=== PATIENT | female | born 1950 | race Caucasian/White ===

== ENCOUNTER 2018-02-12 01:14 | Inpatient (IN) ==
[2018-02-12] MEDS ORDERED: DILTIAZEM 50 MG/10 ML VIAL IV STA (01:33)
[2018-02-12 01:45] LABS: Basophils # 0.1 10*3/uL (0.0-0.2); Basophils % 0.4 % (0.0-0.8); Eosinophils # 0.4 10*3/uL (0.0-0.87); Eosinophils % 3.2 % (0.00-10.9); Hematocrit 38.8 VOL% (35.7-47.0); Hemoglobin 12.7 GM/DL (12.0-16.0); Immature Granulocytes % 1.2 %; Immature Granulocytes Absolute 0.16 #; Lymphocytes # 4.8 10*3/uL (1.4-4.0); Lymphocytes % 35.2 % (21.3-54.2); Mean Corpuscular HGB Conc 32.7 GM/DL (32-36); Mean Corpuscular Hemoglobin 31 PG (27-34); Mean Corpuscular Volume 93.5 FL (87-102); Mean Platelet Volume 9.5 FL (9.6-12.0); Monocytes # 1.3 10*3/uL (0.11-0.8); Monocytes % 9.4 % (1.7-12.7); Neutrophils # 6.9 10*3/uL (1.4-7.4); Neutrophils % 50.6 % (38.7-73.9); Platelet Count 250 T/CUMM (130-400); Red Blood Count 4.15 MC/CUMM (3.8-5.5); Red Cell Distribution Width 13.1 % (9.3-17.3); White Blood Count 13.6 T/CUMM (4-12)
[2018-02-12 01:53] LABS: PT Patient Result 10.5 SECS
[2018-02-12] MEDS ORDERED: KETOROLAC 30 MG/1 ML VIAL IV STA (02:29)
[2018-02-12] MEDS ORDERED: ONDANSETRON 4 MG/2 ML VIAL IV STA (02:29)
[2018-02-12] MEDS ORDERED: KETOROLAC 30 MG/1 ML VIAL ONE (02:30)
[2018-02-12 02:42] LABS: Alanine Aminotransferase 11 U/L (13-56); Albumin 3.3 G/DL (3.4-5.0); Alkaline Phosphatase 78 U/L (45-117); Aspartate Amino Transferase 17 U/L (0-37); Bilirubin,Total < 0.39 MG/DL (0.2-1.0); Calcium 8.4 MG/DL (8.5-10.1); Total Protein 6.8 G/DL (6.4-8.3)
[2018-02-12 02:43] LABS: Apearance,Urine CLOUDY (Clear); Bacteria,Urine Many /HPF (Few); Bilirubin,Urine Negative (Negative); Blood, Urine Negative (Negative); Glucose,Urine (UA) Negative (Negative); Hyaline Casts,Urine 5 /LPF (0-3); Ketones,Urine Negative (Negative); Mucus,Urine Occasional /LPF (Occasional); Nitrite,Urine Negative (Negative); Protein,Urine Negative; RBC,Urine 5 /HPF (0-4); Squamous Epithelial Cell,Urine Occasional /HPF (0-10); Urine Color Yellow (Yellow); Urine Specific Gravity 1.008 (1.001-1.035); Urine Urobilinogen < 2.0 EU/DL (0.2-1.0); WBC,Urine 93 /HPF (0-6)
[2018-02-12 02:43] LABS: Blood Urea Nitrogen 22 MG/DL (7-18); Glucose 113 MG/DL (74-106); Osmolality,Calculated 276.8 MOS/KG (273-304); Potassium 4.1 MMOL/L (3.5-5.1); Sodium 137 MMOL/L (136-145)
[2018-02-12 02:44] LABS: Barbiturates Screen,Urine Negative (Negative); Benzodiazepines Screen,Urine Negative (Negative); Cannabinoid Screen,Urine Negative (Negative); Opiate Screen,Urine Positive (Negative); Phencyclidine Screen,Urine Negative (Negative)
[2018-02-12] MEDS ORDERED: cefTRIAXone 1,000 MG in SODIUM CHLORIDE 0.9% 100 ML IV STA (02:48)
[2018-02-12] MEDS ORDERED: SODIUM CHLORIDE 0.9% 1,000 ML IV STA (03:00)
[2018-02-12] MEDS ORDERED: traZODone 50 MG TABLET PO PRN (03:27)
[2018-02-12] MEDS ORDERED: DOCUSATE SODIUM 100 MG CAPSULE PO PRN (03:27)
[2018-02-12] MEDS ORDERED: ACETAMINOPHEN 325 MG TABLET PO PRN ×2 (03:27→05:48)
[2018-02-12] MEDS ORDERED: ONDANSETRON 4 MG/2 ML VIAL IV PRN ×2 (03:27→05:48)
[2018-02-12] MEDS ORDERED: CYCLOBENZAPRINE 10 MG TABLET PO PRN (03:32)
[2018-02-12] MEDS ORDERED: SOTALOL 80 MG TABLET ONE (04:13)
[2018-02-12] MEDS: SOTALOL 80 MG TABLET PO SCH ×2 (04:35→21:50)
[2018-02-12] MEDS: SODIUM CHLORIDE 0.9% 1,000 ML IV SCH ×2 (06:37→22:48)
[2018-02-12 08:40] LABS: Calcium 8.2 MG/DL (8.5-10.1); Osmolality,Calculated 283.3 MOS/KG (273-304); Potassium 4.4 MMOL/L (3.5-5.1)
[2018-02-12] MEDS: GABAPENTIN 400 MG CAPSULE PO SCH ×3 (09:48→21:50)
[2018-02-12] MEDS: PANTOPRAZOLE 40 MG TABLET PO SCH (09:49)
[2018-02-12] MEDS: VALSARTAN 80 MG TABLET PO SCH (09:49)
[2018-02-12] MEDS: DULoxetine 30 MG CAPSULE PO SCH (09:50)
[2018-02-12] MEDS: APIXABAN 5 MG TABLET PO SCH ×2 (09:52→21:50)
[2018-02-12] MEDS: BUDESONIDE/FORMOTEROL 160-4.5 INHALER 6 GM INH SCH ×2 (09:54→21:50)
[2018-02-12] MEDS: traMADol 50 MG TABLET PO SCH ×2 (15:18→21:50)
[2018-02-12] MEDS: CARBIDOPA/LEVODOPA CR 50-200 MG TABLET PO SCH (21:50)
[2018-02-12] MEDS: MONTELUKAST 10 MG TABLET PO SCH (21:50)
[2018-02-13] MEDS: cefTRIAXone 1,000 MG in SYRINGE 1 EACH IV SCH (03:26)
[2018-02-13] MEDS: PANTOPRAZOLE 40 MG TABLET PO SCH (09:38)
[2018-02-13] MEDS: DULoxetine 30 MG CAPSULE PO SCH (09:38)
[2018-02-13] MEDS: traMADol 50 MG TABLET PO SCH ×3 (09:39→21:29)
[2018-02-13] MEDS: GABAPENTIN 400 MG CAPSULE PO SCH ×3 (09:39→21:28)
[2018-02-13] MEDS: VALSARTAN 80 MG TABLET PO SCH (09:39)
[2018-02-13] MEDS: APIXABAN 5 MG TABLET PO SCH (09:40)
[2018-02-13] MEDS: BUDESONIDE/FORMOTEROL 160-4.5 INHALER 6 GM INH SCH ×2 (09:40→21:31)
[2018-02-13] MEDS: SOTALOL 80 MG TABLET PO SCH ×2 (09:40→21:28)
[2018-02-13] MEDS: SODIUM CHLORIDE 0.9% 1,000 ML IV SCH ×2 (14:18→16:01)
[2018-02-13] MEDS: MONTELUKAST 10 MG TABLET PO SCH (21:28)
[2018-02-13] MEDS: CARBIDOPA/LEVODOPA CR 50-200 MG TABLET PO SCH (21:29)
[2018-02-14] MEDS: cefTRIAXone 1,000 MG in SYRINGE 1 EACH IV SCH (04:07)
[2018-02-14] MEDS: SODIUM CHLORIDE 0.9% 1,000 ML IV SCH ×2 (06:14→09:07)
[2018-02-14 08:16] VITALS: BP 122/72
[2018-02-14] MEDS ORDERED: BENZOCAINE 10% ORAL GEL 7 GM TUBE TOP PRN (09:05)
[2018-02-14] MEDS: SOTALOL 80 MG TABLET PO SCH (09:08)
[2018-02-14] MEDS: traMADol 50 MG TABLET PO SCH (09:08)
[2018-02-14] MEDS: PANTOPRAZOLE 40 MG TABLET PO SCH (09:08)
[2018-02-14] MEDS: DULoxetine 30 MG CAPSULE PO SCH (09:08)
[2018-02-14] MEDS: GABAPENTIN 400 MG CAPSULE PO SCH (09:08)
[2018-02-14] MEDS: VALSARTAN 80 MG TABLET PO SCH (09:09)
[2018-02-14] MEDS: BUDESONIDE/FORMOTEROL 160-4.5 INHALER 6 GM INH SCH (09:11)
== END 2018-02-14 12:28 | disposition home or self-care (01) | DRG 309 ==
LOC: EDUNIT# → EDBD → N.TELEN 01:14 → N.ED 01:14 → N.TELEN 05:10 → SUATTDRO 05:48
PROVIDERS: ADMIT Internal Medicine; ATTEND Hospitalist